=== PATIENT | male | born 1965 | race Caucasian/White ===

== ENCOUNTER 2017-02-18 16:23 | Emergency (ER) | payer OTHER ==
[~2017-02-18] VITALS: Ht 175.3 cm; Wt 97.1 kg
[2017-02-18 16:47] VITALS: BP 113/74
--- NOTE | 2017-02-18 16:50 | NUR ---
Patient to OF via wheelchair per tech. Lab drawing blood.
[2017-02-18 17:12] LABS: BASOPHILS # (AUTO) 0.2 K/uL (0.00-0.22); BASOPHILS % (AUTO) 1.5 % (0.0-2.0); EOSINOPHILS # (AUTO) 0.1 K/uL (0-0.4); HEMATOCRIT 43.8 % (36-52); HEMOGLOBIN 14.6 g/dL (12.0-18.0); LYMPHOCYTES # (AUTO) 1.8 K/uL (2.0-11.5); LYMPHOCYTES % (AUTO) 13.4 % (20.5-51.1); MEAN CORPUSCULAR HEMOGLOBIN 28 pg (27-31); MEAN CORPUSCULAR HGB CONC 33 g/dL (33-37); MEAN CORPUSCULAR VOLUME 85 fL (80-94); MONOCYTES # (AUTO) 0.9 K/uL (0.8-1.0); MONOCYTES % (AUTO) 6.3 % (1.7-9.3); NEUTROPHILS # (AUTO) 10.7 K/uL (1.8-7.7); NEUTROPHILS % (AUTO) 77.8 % (42.2-75.2); PLATELET COUNT (AUTO) 293 K/uL (140-450); RED BLOOD CELL COUNT(AUTO) 5.17 MIL/uL (4.20-6.10); RED CELL DISTRIBUTION WIDTH 12.4 % (11.6-13.7); WHITE BLOOD COUNT (AUTO) 13.7 K/uL (4.8-10.8)
[2017-02-18 17:24] LABS: ANION GAP 9.6 (8-16); CARBON DIOXIDE 29.5 mmol/L (21-32); CREATININE 1.1 mg/dL (0.7-1.3); POTASSIUM 4.1 mmol/L (3.5-5.1)
[2017-02-18 17:25] VITALS: BP 133/72
--- NOTE | 2017-02-18 17:30 | NUR ---
FIRST CONTACT WITH PT. 51 YO MALE C/O ABSCESS TO RT AXILLA AND RT UPPER BACK X16 D, PAIN TO SIGHT 03/03. A&OX4, VSS, GURNEY TO LOWER LEVEL, BED RAIL UP, WAITING FOR ERMD EVAL. PT IS UPSET AND WOULD LIKE TO EAT.
[2017-02-18 17:31] LABS: ALBUMIN 3.4 g/dL (3.4-5.0); TOTAL BILIRUBIN 0.4 mg/dL (0.0-1.0)
--- NOTE | 2017-02-18 17:43 | NUR ---
PT IS UPSET AND BECAUSE HE IS UNABLE TO EAT. I TOLD PT TO WAIT TO SEE WHAT THE DOCTOR SAYS, PT GOT UPSET AND STATED "FUCK THIS SHIT, I'M OUT OF HERE, I'M LEAVING." TOOK EVERYHTING OFF AND WALKED OUT.
--- NOTE | 2017-02-18 17:48 | NUR ---
PT ELOPED, ERMD DID NOT HAVE ANY CONTACT WITH PT, PT WALK OUT OF FACILITY.
--- NOTE | 2017-02-18 17:48 | NUR ---
PATIENT ELOPED FROM FACILITY. DISCHARGE INSTRUCTIONS NOT GIVEN TO PATIENT. DR. HAWK NOTIFIED.
== END 2017-02-18 17:48 | disposition left against medical advice (07) ==
LOC: MED 16:23
DX: R53.1 Weakness (principal); Z53.21 Procedure and treatment not carried out due to patient leaving prior to being seen by health care provider
CPT/HCPCS: 36415; 80053; 85025; 99281

== ENCOUNTER 2017-06-08 20:06 | Emergency (ER) | payer SELFPAY ==
--- NOTE | 2017-06-08 20:22 | NUR ---
PATIENT LEFT WITHOUT BEING SEEN BY DR. Bello. NO FURTHER CARE PROVIDED FOR PATIENT.
== END 2017-06-08 20:22 | disposition left against medical advice (07) ==
LOC: MED 20:06
DX: Z53.21 Procedure and treatment not carried out due to patient leaving prior to being seen by health care provider (principal)